=== PATIENT | female | born 1975 | race Caucasian/White ===

== ENCOUNTER 2019-04-02 18:15 | Emergency (ER) | payer OTHER ==
[~2019-04-02] VITALS: Ht 160 cm; Wt 62.4 kg
[2019-04-02 18:17] VITALS: BP 117/79
[2019-04-02] MEDS ORDERED: LIDOCAINE-MPF 1%, 5ML ONE (18:46)
[2019-04-02] MEDS ORDERED: LIDOCAINE-MPF 1%, 5ML INFIL ONE (19:00)
== END 2019-04-02 20:10 | disposition home or self-care (01) ==
LOC: EDBD 18:15 → ED 20:00
DX: L02.31 Cutaneous abscess of buttock (principal)
CPT/HCPCS: 10060; 99283